=== PATIENT | female | born 1975 | race Caucasian/White ===

== ENCOUNTER → 2017-04-11 | Outpatient (CLI) | payer OTHER ==
--- NOTE | 2017-04-16 11:37 | RSPPFT ---
DATE OF PROCEDURE: 04/11/17 COMMENTS: Spirometry with FVC of 3.5, FEV1 of 2.1, FEV1/FVC ratio at 59%. A positive and significant response to acutely inhaled bronchodilator. Slow vital capacity is 90% of predicted. TLC is 100%. Diffusion capacity is normal. IMPRESSION: 1. Moderate airways obstruction. 2. Positive and significant response to acutely inhaled bronchodilator. 3. No evidence of airways restriction. 4. Normal diffusion capacity.
== END ==
LOC: PHRSP 08:36
PROVIDERS: ATTEND Family Medicine
DX: J44.9 Chronic obstructive pulmonary disease, unspecified (principal)
CPT/HCPCS: 94060; 94726; 94729